=== PATIENT | male | born 1955 | race American Indian/Alaskan Native ===

== ENCOUNTER 2020-02-20 04:03 | Emergency (ER) | payer MEDICARE ==
--- NOTE | 2020-02-20 07:03 | Emergency Department Report ---
ED General Adult HPI - General Chief complaint: Dyspnea/Respdistress Stated complaint: CHEST PAIN PUI?: Yes Time Seen by Provider: 02/20/20 06:37 Source: patient, EMS ( EMS documentation not available at time of chart dic tation ), RN notes reviewed Mode of arrival: Stretcher Limitations: Other (The patient is a poor historian) - History of Present Illness Initial comments: The patient was evaluated in the emergency department for symptoms described in the history of present illness. He/she was evaluated in the context of the global COVID-19 pandemic, which necessitated consideration that the patient might be at risk for infection with the virus that causes COVID-19. Institutional protocols and algorithms that pertain to the evaluation of patients at risk for COVID-19 are in a state of rapid change based on informatio n released by regulatory bodies including the CDC and federal and state organizations. These policies and algorithms were followed during the patient's care in the emergency department. Please note that these policies, procedures and recommendations changed on a rapid basis. The patient is a 64-year-old gentleman. This patient is not known to myself During the entire history and physical examination, I had on complete personal protective equipment. The patient presents to the ER today with a complaint of being hungry and requesting to eat. He states that he is homeless. He admits to a dry cough. He is not sure if he is having loss of taste or loss of smell. He complains of nontraumatic left paracervical neck pain, has not for months. It is not new, worsened or different today. He denies headache, chest pain, he has abdominal cramping, but no nausea, he is not sure if he is having urinary symptoms. He denies extremity weakness or numbness. He is not sure if he has been exposed to Covid positive individuals. He makes no complaint of homicidality, suicidality, intentional overdose or wanting to harm himself. -: month(s) Location: neck Radiation: non-radiation Consistency: constant, intermittent Improves with: none Worsens with: none - Related Data Previous Rx's Medication Instructions Recorded Last Taken Type Albuterol Sulfate [Proair 90 mcg IH Q4HR PRN #2 [email or web address] 02/20/20 Unknown Rx Respiclick] Magnesium Oxide 400 mg PO QDAY #30 tablet 02/20/20 Unknown Rx Multivitamin with Folic Acid [Cvs 400 mcg PO QDAY #30 tablet 02/20/20 Unknown Rx One Daily Essential Tablet] cephALEXin [Keflex] 500 mg PO Q6HR #20 capsule 02/20/20 Unknown Rx Allergies Allergy/AdvReac Type Severity Reaction Status Date / Time No Known Allergies Allergy Unverified 02/20/20 04:17 ED Review of Systems ROS: Stated complaint: CHEST PAIN Other details as noted in HPI Constitutional: malaise Eyes: denies: eye discharge ENT: congestion Respiratory: cough Cardiovascular: denies: syncope Gastrointestinal: denies: abdominal pain Genitourinary: as per HPI Musculoskeletal: myalgia Skin: lesions Neurological: weakness ED Past Medical Hx - Past Medical History Previous Medical History?: No - Surgical History Past Surgical History?: No - Social History Smoking Status: Never Smoker Substance Use Type: None - Medications Home Medications: Home Medications Medication Instructions Recorded Confirmed Last Taken Type Albuterol Sulfate [Proair 90 mcg IH Q4HR PRN #2 [email or web address] 02/20/20 Unknown Rx Respiclick] Magnesium Oxide 400 mg PO QDAY #30 tablet 02/20/20 Unknown Rx Multivitamin with Folic Acid [[facility] 400 mcg PO QDAY #30 tablet 02/20/20 Unknown Rx One Daily Essential Tablet] cephALEXin [Keflex] 500 mg PO Q6HR #20 capsule 02/20/20 Unknown Rx ED Physical Exam - General Limitations: Other (Patient is a poor historian) General appearance: alert, in no apparent distress - Head Head exam: Present: atraumatic, normocephalic - Eye Eye exam: Present: normal appearance, EOMI. Absent: nystagmus - ENT ENT exam: Present: normal orophraynx, mucous membranes dry, normal external ear exam, other (The patient is speaking in full sentences. There is no stridor or dysphonia. There is no elevation of the base of the tongue. Uvula and tonsils appear to be within normal limits) - Neck Neck exam: Present: full ROM, other (Hyperpigmented skin noted to the left paracervical region. There are excoriated lesions noted. There is no pus, streaking or tenderness. There is full range of motion of the neck.). Absent: tenderness, meningismus, lymphadenopathy, thyromegaly - Respiratory Respiratory exam: Present: rhonchi. Absent: respiratory distress, wheezes, rales, stridor - Cardiovascular Cardiovascular Exam: Present: regular rate, normal rhythm, normal heart sounds. Absent: bradycardia, tachycardia, irregular rhythm, systolic murmur, diastolic murmur, rubs, gallop - GI/Abdominal GI/Abdominal exam: Present: soft. Absent: distended, tenderness, guarding, rebound, rigid, pulsatile mass - Rectal Rectal exam: Present: deferred - Extremities Exam Extremities exam: Present: normal inspection, full ROM, other (2+ pulses noted in the bilateral upper and lower extremities. There is no palpable cord. negative Homans sign. Muscular compartments are soft. The pelvis is stable.). Absent: calf tenderness - Back Exam Back exam: Present: normal inspection, full ROM. Absent: tenderness, CVA tenderness (R), CVA tenderness (L), paraspinal tenderness, vertebral tenderness - Neurological Exam Neurological exam: Present: alert, other (No facial droop. Tongue midline. Extraocular movements intact bilaterally. Facial sensation intact to light touch in V1, V2, V3 distribution bilaterally. 5 and a 5 strength in 4 extremities. Sensation intact to light touch in 4 extremities.) - Psychiatric Psychiatric exam: Present: normal affect, normal mood - Skin Skin exam: Present: warm ED Course Vital Signs 02/20/20 02/20/20 02/20/20 04:13 07:19 07:21 Temperature 97.5 F L Pulse Rate 96 H 89 Respiratory 16 20 20 Rate Blood Pressure 99/64 Blood Pressure 140/90 [Right] O2 Sat by Pulse 100 98 100 Oximetry 02/20/20 02/20/20 02/20/20 09:08 11:18 12:14 Temperature Pulse Rate 89 105 H 97 H Respiratory 18 18 18 Rate Blood Pressure Blood Pressure 125/72 131/83 130/83 [Right] O2 Sat by Pulse 99 99 97 Oximetry 02/20/20 13:42 Temperature 98.7 F Pulse Rate 96 H Respiratory 18 Rate Blood Pressure Blood Pressure 138/89 [Right] O2 Sat by Pulse 96 Oximetry - Reevaluation(s) Reevaluation #1: 02/20/20 07:20 Differential diagnosis, including but not limited to: Homelessness, dehydration, malnutrition, pneumonia, urinary tract infection, electrolyte derangement Assessment and plan: 64-year-old gentleman with a primary complaint of being hungry, and asking to eat. He has a nonspecific excoriated left neck rash, present for months. His examination is fairly benign with the exception of hypotension, likely secondary to dehydration and malnutrition. He states that he is homeless. The neck is supple with full range of motion, with no stridor, or significant tenderness. Place patient on isolation precautions, obtain x-ray of the chest, urinalysis, EKG, appropriate laboratory studies, initiate IV fluid resuscitation. Patient asking to eat, and we will be happy to feed him. Reevaluation #2: 02/20/20 14:52 Patient reassessed. He had an uneventful stay while here in the emergency room. An x-ray of the chest showed nonspecific findings, therefore, noncontrast CT scan of the chest was obtained, as per the recommendation of the radiologist. The formal noncontrast CT scan of the chest showed no acute findings. Laboratory studies were significant for elevated blood alcohol level, and the patient is clinically sober at this time. His urinalysis suggests pyuria. He was observed in this department for hours, without clinical decompensation. Even if patient has Covid, given lack of hypoxia, x-ray and CT scan findings of the chest, does not meet criteria for inpatient hospitalization. We will give prescription for Keflex for pyuria, and instructed patient to abstain from alcohol consumption, he will need to follow-up with an outpatient primary care doctor. ED Medical Decision Making - Lab Data Result diagrams: 02/20/20 07:18 02/20/20 07:18 Vital Signs 02/20/20 02/20/20 02/20/20 04:13 07:19 07:21 Temperature 97.5 F L Pulse Rate 96 H 89 Respiratory 16 20 20 Rate Blood Pressure 99/64 Blood Pressure 140/90 [Right] O2 Sat by Pulse 100 98 100 Oximetry 02/20/20 02/20/20 09:08 11:18 Temperature Pulse Rate 89 105 H Respiratory 18 18 Rate Blood Pressure Blood Pressure 125/72 131/83 [Right] O2 Sat by Pulse 99 99 Oximetry Lab Results 02/20/20 02/20/20 02/20/20 Range/Units 07:18 07:18 07:18 WBC 3.3 L (4.5-11.0) K/mm3 RBC 3.94 (3.65-5.03) M/mm3 Hgb 13.0 (11.8-15.2) gm/dl Hct 38.0 (35.5-45.6) % MCV 97 H (84-94) fl MCH 33 H (28-32) pg MCHC 34 (32-34) % RDW 13.0 L (13.2-15.2) % Plt Count 159 (140-440) K/mm3 Lymph % (Auto) 25.6 (13.4-35.0) % Warrick % (Auto) 13.9 H (0.0-7.3) % Eos % (Auto) 8.7 H (0.0-4.3) % Baso % (Auto) 0.6 (0.0-1.8) % Lymph # (Auto) 0.9 L (1.2-5.4) K/mm3 Warrick # (Auto) 0.5 (0.0-0.8) K/mm3 Eos # (Auto) 0.3 (0.0-0.4) K/mm3 Baso # (Auto) 0.0 (0.0-0.1) K/mm3 Seg Neutrophils % 51.2 (40.0-70.0) % Seg Neutrophils # 1.7 L (1.8-7.7) K/mm3 Sodium 143 (137-145) mmol/L Potassium 3.8 (3.6-5.0) mmol/L Chloride 106.6 (98-107) mmol/L Carbon Dioxide 27 (22-30) mmol/L Anion Gap 13 mmol/L BUN 21 H (9-20) mg/dL Creatinine 1.0 (0.8-1.3) mg/dL Estimated GFR > 60 ml/min BUN/Creatinine Ratio 21 % Glucose 84 (75-100) mg/dL Lactic Acid 1.90 (0.7-2.0) mmol/L Calcium 10.2 (8.4-10.2) mg/dL Magnesium 1.50 L (1.7-2.3) mg/dL Total Bilirubin 0.30 (0.1-1.2) mg/dL AST 29 (5-40) units/L ALT 19 (7-56) units/L Alkaline Phosphatase 51 (35-129) units/L Total Creatine Kinase 163 (55-170) units/L Troponin T < 0.010 (0.00-0.029) ng/mL Total Protein 7.7 (6.3-8.2) g/dL Albumin 4.4 (3.9-5) g/dL Albumin/Globulin Ratio 1.3 % Salicylates (2.8-20.0) mg/dL Acetaminophen (10.0-30.0) ug/mL Plasma/Serum Alcohol (0-0.07) % 02/20/20 02/20/20 02/20/20 Range/Units 07:18 07:18 07:18 WBC (4.5-11.0) K/mm3 RBC (3.65-5.03) M/mm3 Hgb (11.8-15.2) gm/dl Hct (35.5-45.6) % MCV (84-94) fl MCH (28-32) pg MCHC (32-34) % RDW (13.2-15.2) % Plt Count (140-440) K/mm3 Lymph % (Auto) (13.4-35.0) % Warrick % (Auto) (0.0-7.3) % Eos % (Auto) (0.0-4.3) % Baso % (Auto) (0.0-1.8) % Lymph # (Auto) (1.2-5.4) K/mm3 Warrick # (Auto) (0.0-0.8) K/mm3 Eos # (Auto) (0.0-0.4) K/mm3 Baso # (Auto) (0.0-0.1) K/mm3 Seg Neutrophils % (40.0-70.0) % Seg Neutrophils # (1.8-7.7) K/mm3 Sodium (137-145) mmol/L Potassium (3.6-5.0) mmol/L Chloride (98-107) mmol/L Carbon Dioxide (22-30) mmol/L Anion Gap mmol/L BUN (9-20) mg/dL Creatinine (0.8-1.3) mg/dL Estimated GFR ml/min BUN/Creatinine Ratio % Glucose (75-100) mg/dL Lactic Acid (0.7-2.0) mmol/L Calcium (8.4-10.2) mg/dL Magnesium (1.7-2.3) mg/dL Total Bilirubin (0.1-1.2) mg/dL AST (5-40) units/L ALT (7-56) units/L Alkaline Phosphatase (35-129) units/L Total Creatine Kinase (55-170) units/L Troponin T (0.00-0.029) ng/mL Total Protein (6.3-8.2) g/dL Albumin (3.9-5) g/dL Albumin/Globulin Ratio % Salicylates < 0.3 L (2.8-20.0) mg/dL Acetaminophen 5.0 L (10.0-30.0) ug/mL Plasma/Serum Alcohol 0.19 H (0-0.07) % - EKG Data -: EKG Interpreted by Tx EKG shows normal: sinus rhythm Rate: normal - EKG Data 02/20/20 07:21 There is no prior EKG available for comparison. Sinus rhythm, 85 bpm, normal axis, QTC 445 ms, left ventricular hypertrophy, incomplete right bundle branch block. This EKG is abnormal. This EKG is not a STEMI. There is no prior for comparison. - Radiology Data Radiology results: pending, report reviewed, image reviewed Print Report Referring Physician: IVON MEHTA Patient Name: YAIMA REAVES Date of : 1955 Sex: Male Report Date: 2020-02-20 Report Status: Finalized Findings [facility] [address] [place] [address] XRay Report Signed Patient: YAIMA REAVES MR#: [id number] 9 : 1955 Acct:[id number] Age/Sex: 64 / M ADM Date: 02/20/20 Loc: ED Attending Dr: Ordering Physician: IVON MEHTA MD Date of Service: 02/20/20 Procedure(s): XR chest 1V ap Accession Number(s): [id number] cc: IVON MEHTA MD Fluoro Time In Minutes: CHEST 1 VIEW INDICATION: dyspnea COMPARISON: None FINDINGS: SUPPORT DEVICES: None. HEART / MEDIASTINUM: No significant abnormality. LUNGS / PLEURA: Ill-defined density right midlung zone. No pneumothorax. ADDITIONAL FINDINGS: IMPRESSION: 1. Ill-defined density right midlung zone, recommend CT for further evaluation Signer Name: Russ Luz MD Signed: 02/20/2020 10:00 AM Workstation Name: [id number] Transcribed By: WG Dictated By: Russ Luz MD Electronically Authenticated By: Russ Luz MD Signed Date/Time: 02/20/20 1000 DD/ 0959 TD/TT: CT CHEST WITHOUT CONTRAST INDICATION / CLINICAL INFORMATION: cough, lung density, weakness. TECHNIQUE: Axial CT images were obtained through the chest without contrast. All CT scans at this location are performed using CT dose reduction for ALARA by means of automated exposure control. COMPARISON: Prior chest radiograph dated 02/20/2020. FINDINGS: HEART: Coronary artery calcifications are noted. THORACIC AORTA: Mild atherosclerotic calcification without acute abnormality. MEDIASTINUM and HARMONY: No significant abnormality. LUNGS: Mild central lobar and paraseptal emphysematous changes are noted. Mild right lung base atelectasis. No pulmonary consolidations or pulmonary nodules. The previously noted opacity in the right midlung field on prior exam may have represented projection from overlying ribs. PLEURA: No significant pleural effusion. No pneumothorax. ADDITIONAL FINDINGS: None. UPPER ABDOMEN: No acute abnormality of the upper abdomen. SKELETAL SYSTEM: Multilevel degenerative changes are noted of the spine. No aggressive osseous lesions. IMPRESSION: 1. Mild right lung base atelectasis. 2. Emphysematous lung changes. 3. No pulmonary opacity or nodule corresponding with the previously noted findings on chest radiograph. The findings in the chest radiograph may represent projection from overlying ribs. Signer Name: Chema Vo MD Signed: 02/20/2020 1:22 PM Workstation Name: [id number] Critical care attestation.: If time is entered above; I have spent that time in minutes in the direct care of this critically ill patient, excluding procedure time. ED Disposition Clinical Impression: Alcohol intoxication, Pyuria, Suspected 2019 novel coronavirus infection, Homeless, Hypomagnesemia Disposition: DC-01 TO HOME OR SELFCARE Is pt being admited?: No Does the pt Need Aspirin: No Condition: Good Additional Instructions: Patient may have novel coronavirus/COVID-19. The symptoms of COVID will typically persist 10 to 14 days. There is no cure at this time for COVID. Please make certain to self isolate and self quarantine, follow-up with an outpatient primary care doctor within the next 3 to 5 days, wash hands with soap and water frequently, thoroughly and often, patient may take the prescribed medications as needed and directed. Advance diet and drink plenty of fluids as tolerated. Avoid interactions with the very elderly, very young, and those with chronic medical conditions. Return to the emergency room right away with new pain, worsening pain, migration of pain, projectile vomiting, change in mental status, confusion, inability to tolerate liquid feeds, new, worsened or different symptoms not present on the initial emergency room evaluation. Cultures were sent today, and results will be available in the next 3 to 5 days. Take the antibiotics as directed, and please have a primary care doctor contact the medical records department to obtain culture results. Take a multivitamin as directed, and recommend that patient avoid consumption of alcohol and recreational drugs. Referrals: [facility] [Provider Group] - 3-5 Days
[2020-02-20] MEDS ORDERED: SODIUM CHLORIDE 0.9% 1000 ML 2,000 ML IV ONE (07:15)
[2020-02-20 07:41] LABS: Basophils % (Auto) 0.6 % (0.0-1.8); Eosinophils # (Auto) 0.3 K/mm3 (0.0-0.4); Eosinophils % (Auto) 8.7 % (0.0-4.3); Lymphocytes # (Auto) 0.9 K/mm3 (1.2-5.4); Lymphocytes % (Auto) 25.6 % (13.4-35.0); Mean Corpuscular HGB Conc 34 % (32-34); Mean Corpuscular Volume 97 fl (84-94); Monocytes # (Auto) 0.5 K/mm3 (0.0-0.8); Monocytes % (Auto) 13.9 % (0.0-7.3); Platelet Count 159 K/mm3 (140-440); Red Blood Count 3.94 M/mm3 (3.65-5.03)
[2020-02-20 09:12] LABS: Alanine Aminotransferase 19 units/L (7-56); Albumin 4.4 g/dL (3.9-5); BUN/Creatinine Ratio 21; Blood Urea Nitrogen 21 mg/dL (9-20); Calcium 10.2 mg/dL (8.4-10.2); Hemolysis Index 3
[2020-02-20] MEDS ORDERED: MAGNESIUM SULFATE 2 GM/50 ML BAG IV ONE (09:15)
--- NOTE | 2020-02-20 10:04 | XRay Report ---
CHEST 1 VIEW INDICATION: dyspnea COMPARISON: None FINDINGS: SUPPORT DEVICES: None. HEART / MEDIASTINUM: No significant abnormality. LUNGS / PLEURA: Ill-defined density right midlung zone. No pneumothorax. ADDITIONAL FINDINGS: IMPRESSION: 1. Ill-defined density right midlung zone, recommend CT for further evaluation Signer Name: Russ Luz MD Signed: 02/20/2020 10:00 AM Workstation Name: [id number]
[2020-02-20 13:22] LABS: Bilirubin,Urine NEG (Negative); Blood,Urine NEG (Negative); Color,Urine Yellow (Yellow); Protein,Urine <15 mg/dL mg/dL (Negative)
[2020-02-20 13:43] VITALS: BP 138/89
--- NOTE | 2020-02-20 14:27 | Cat Scan Report ---
CT CHEST WITHOUT CONTRAST INDICATION / CLINICAL INFORMATION: cough, lung density, weakness. TECHNIQUE: Axial CT images were obtained through the chest without contrast. All CT scans at this location are p erformed using CT dose reduction for ALARA by means of automated exposure control. COMPARISON: Prior chest radiograph dated 02/20/2020. FINDINGS: HEART: Coronary artery calcifications are noted. THORACIC AORTA: Mild atherosclerotic calcification without acute abnormality. MEDIASTINUM and HARMONY: No significant abnormality. LUNGS: Mild central lobar and paraseptal emphysematous changes are noted. Mild right lung base atelec tasis. No pulmonary consolidations or pulmonary nodules. The previously noted opacity in the right m idlung field on prior exam may have represented projection from overlying ribs. PLEURA: No significant pleural effusion. No pneumothorax. ADDITIONAL FINDINGS: None. UPPER ABDOMEN: No acute abnormality of the upper abdomen. SKELETAL SYSTEM: Multilevel degenerative changes are noted of the spine. No aggressive osseous lesion s. IMPRESSION: 1. Mild right lung base atelectasis. 2. Emphysematous lung changes. 3. No pulmonary opacity or nodule corresponding with the previously noted findings on chest radiograp h. The findings in the chest radiograph may represent projection from overlying ribs. Signer Name: Chema Vo MD Signed: 02/20/2020 2:22 PM Workstation Name: [id number]
== END 2020-02-20 15:50 | disposition home or self-care (01) ==
LOC: ED 04:03
DX: F10.129 Alcohol abuse with intoxication, unspecified (principal); Z20.828 Contact with and (suspected) exposure to other viral communicable diseases; R82.81 Pyuria; E83.42 Hypomagnesemia; Z59.0 Homelessness; Z79.899 Other long term (current) drug therapy
CPT/HCPCS: 36415; 71045; 71250; 80053; 81001; 82140; 82550; 83735; 84484; 85025; 87086; 93005; 96361; 96365; 96366; 99285; J3475; J7030; 80320; G0480